=== PATIENT | female | born 1975 | race Caucasian/White ===

== ENCOUNTER 2018-02-23 02:25 | Emergency (ER) | payer OTHER ==
[~2018-02-23] VITALS: Ht 162.6 cm; Wt 86.6 kg
[2018-02-23 02:25] VITALS: BP 227/90
--- NOTE | 2018-02-23 02:25 | NUR ---
PT TRANSFERED FROM [facility] TO BED 10 WITH VSS. BIB EMS AND FIRE. NURSING AND DR COX AT BEDSIDE FOR EVALUATION.
--- NOTE | 2018-02-23 02:25 | NUR ---
BIPAP APPLIED TO PT BY RT, PT TOLERATING WELL, SP02 98%.
[2018-02-23 02:30] VITALS: BP 156/68
--- NOTE | 2018-02-23 02:30 | NUR ---
PATIENT WAS BROUGHT IN AND REPORTED SOB. BREATH SOUNDS CLEAR, 99%, PULSE 88, RATE 22, BP 156/68. SETTINGS: /, RATE 16, 24%. GEL PROTECTANT ON. ALARMS ON AND AUDIBLE. BIPAP PLUGGED INTO RED OUTLET. PT REPORTS FEELING BETTER WITH BIPAP. NURSES ALEXANDRA AGUDELO AND NARENDRA WHITE AT BEDSIDE.
[2018-02-23] MEDS ORDERED: NITROGLYCERIN 0.4 MG TAB SL ONE (02:35)
--- NOTE | 2018-02-23 02:47 | NUR ---
PT BIBA FOR SUDDEN ON SET OF SOB AT HOME. PT IS MILD RESP DISTRESS UPON ARRIVAL, PT ON NON REBREATHER ON ARRIVAL, PLACED ON BIPAP IMMEDIATELY PER MD REQUEST. RR EVEN, LABORED, BL BS CLEAR THROUGHOUT. PT IS ABLE TO SPEAK SHORT SENTENCES. PT C/O PAIN TO LEGS. B/P ELEVATED UPON ARRIVAL, ER MD AWARE OF PT STATUS, WILL CONTINUE W/ ORDERS. PMH COPD, SLEEP APNEA, DM,ESRD, DIALYSIS (PORT TO CHEST AND ABD).
[2018-02-23 02:50] LABS: BASOPHILS % (AUTO) 0.6 % (0.0-2.0); EOSINOPHILS # (AUTO) 0.1 K/uL (0-0.4); EOSINOPHILS % (AUTO) 1.7 % (0.0-4.0); HEMATOCRIT 39.9 % (36-48); HEMOGLOBIN 12.5 g/dL (12.0-16.0); LYMPHOCYTES # (AUTO) 1.2 K/uL (2.5-16.5); LYMPHOCYTES % (AUTO) 15.6 % (20.5-51.1); MEAN CORPUSCULAR HEMOGLOBIN 29 pg (27-31); MEAN CORPUSCULAR HGB CONC 31 g/dL (33-37); MEAN CORPUSCULAR VOLUME 92.7 fL (80-94); MONOCYTES # (AUTO) 0.5 K/uL (0.8-1.0); MONOCYTES % (AUTO) 6.6 % (1.7-9.3); NEUTROPHILS # (AUTO) 5.7 K/uL (1.8-7.7); NEUTROPHILS % (AUTO) 75.5 % (42.2-75.2); PLATELET COUNT (AUTO) 269 K/uL (140-450); RED CELL DISTRIBUTION WIDTH 16.4 % (11.6-13.7); WHITE BLOOD COUNT (AUTO) 7.6 K/uL (4.8-10.8)
--- NOTE | 2018-02-23 02:50 | NUR ---
EKG PERFORMED AT BEDSIDE WITH RESPIRATORY THERAPIST PRESENT. PT COVERED IN GOWN AND BLANKET DURING PROCEDURE
--- NOTE | 2018-02-23 03:00 | NUR ---
PER DR. COX, BIPAP WAS REMOVED. PATIENT'S VITALS REMAINED STABLE AND PT SPOKE WITHOUT CLIPPED SENTENCES. PT VERBALIZED FEELING FINE NOW. NO DISTRESS OR SOB NOTED.
[2018-02-23 03:04] LABS: ALBUMIN 3.4 g/dL (3.4-5.0); ANION GAP 15.9 (8-16); CARBON DIOXIDE 28.5 mmol/L (21-32); CREATININE 3.3 mg/dL (0.6-1.3); POTASSIUM 4.4 mmol/L (3.5-5.1); TOTAL BILIRUBIN 0.4 mg/dL (0.0-1.0)
[2018-02-23] MEDS ORDERED: MORPHINE SULFATE 4 MG/ML SYR IVP ONE ×2 (03:10→04:50)
[2018-02-23 03:15] LABS: CREATINE KINASE MB 1.4 ng/mL (0-3.6)
--- NOTE | 2018-02-23 03:16 | NUR ---
MORPHINE NOT AVAILABLE IN ER MELISSA, RIVAS SUP. TO FOLLOW UP.
[2018-02-23] MEDS ORDERED: MORPHINE SULFATE 4 MG/ML SYR ONE ×2 (03:27→05:00)
--- NOTE | 2018-02-23 04:49 | NUR ---
PT LAYING HIGH SANDHU IN BED. SPO2 95% ON RA, RR 14 EVEN AND UNLABORED. BP 183/72, HR 86. PT REPORTS 5/10 BLE PAIN. ER MD AT BEDSIDE.
--- NOTE | 2018-02-23 05:21 | NUR ---
Pt ambulated with assistance 150 feet through ER. Pt states no SOB or Dyspnea. Pt states feeling much better. Assisted back into bed. Pt states needeing assistance at home. VSS. O2sat 98% @RA. ER aware. Continue to monitor.
[2018-02-23 05:36] VITALS: BP 186/73
--- NOTE | 2018-02-23 05:36 | NUR ---
Patient discharged with v/s stable. Written and verbal after care instructions given and explained. Patient alert, oriented and verbalized understanding of instructions. Ambulatory with steady gait. Pt ambulatory at home with tanner. Assisted to lobby by nursing staff. All questions addressed prior to discharge. ID band removed. Patient advised to follow up with PMD. Rx of [place] given. Patient educated on indication of medication including possible reaction and side effects. Opportunity to ask questions provided and answered.
== END 2018-02-23 05:36 | disposition home or self-care (01) ==
LOC: MED 02:25
DX: I12.0 Hypertensive chronic kidney disease with stage 5 chronic kidney disease or end stage renal disease (principal); N18.6 End stage renal disease; R06.00 Dyspnea, unspecified; M79.604 Pain in right leg; M79.605 Pain in left leg; Z99.2 Dependence on renal dialysis
CPT/HCPCS: 36415; 36600; 71045; 80053; 82550; 82553; 82803; 83880; 84484; 85025; 93005; 96374; 96376; 99284; J2270; Q0092; 96375